=== PATIENT | male | born 1940 | race Caucasian/White ===

== ENCOUNTER 2020-03-05 12:04 | Inpatient (IN) | payer MEDICARE, OTHER ==
[~2020-03-05] VITALS: Ht 188 cm; Wt 65.0 kg
[2020-03-05] MEDS ORDERED: PRILOSEC 20MG20 MG PO (12:16)
[2020-03-05] MEDS ORDERED: FLONASEALLERGY NS (12:17)
[2020-03-05] MEDS ORDERED: FLOMAX 0.40.4 MG/CAP PO (12:17)
[2020-03-05 12:36] LABS: BASO % 0.2 % (0.0-2.0); EOS % 0.1 % (0-4.0); GRAN # 7.8 (1.4-6.5); GRAN % 86.4 % (42.2-75.2); HEMATOCRIT 41.6 % (42.0-52.0); HEMOGLOBIN 14.6 g/dl (13.5-18.0); LYMPH # 0.6 (1.2-3.4); LYMPH % 6.6 % (20.0-51.0); MEAN CELL VOLUME 89 fl (80.0-100.0); MEAN CORPUSCULAR HEMOGLOBIN 31 pg (27.0-31.0); MEAN CORPUSCULAR HGB CONC 35 g/dl (33.0-37.0); MEAN PLATELET VOLUME 10.6 fl (7.4-10.4); MONO # 0.6 (0.1-0.6); MONO % 6.3 % (1.7-9.3); PLATELET COUNT 159 K/mm3 (130-400); RED BLOOD COUNT 4.66 M/mm3 (4.20-5.60); REDCELL DISTRIBUTION WIDTH-CV 13.2 % (11.5-14.5)
[2020-03-05 12:43] LABS: ALBUMIN 3.9 gm/dL (3.5-5.0); BILIRUBIN,TOTAL 0.9 mg/dL (0.0-1.0); CALCIUM 8.6 mg/dL (8.4-10.2); CREATININE, serum 0.65 (0.66-1.25); POTASSIUM 4.9 mmol/L (3.4-5.0); TOTAL PROTEIN 6.3 gm/dL (6.4-8.2)
[2020-03-05 12:54] LABS: TROPONIN-I 0.025 ng/mL (0.000-0.035)
[2020-03-05 13:25] LABS: INR 1.1 (0.8-3.0); PROTHROMBIN TIME 12.7 SECONDS (9.7-12.8)
[2020-03-05 15:19] VITALS: BP 148/96; PULSE 90
[2020-03-05 17:03] VITALS: BP 153/98; PULSE 91; TEMP 97.5
[2020-03-05 18:59] VITALS: BP 128/87; PULSE 97; TEMP 98.3
[2020-03-05 23:28] VITALS: BP 135/87; PULSE 79; TEMP 98.2
--- NOTE | 2020-03-06 02:25 | NUR ---
Pt assessment completed, charted, alert, oriented, roomair. Meds provided as per MAR, tolertaed well. No N/V/D/ tingling, numbness, pain, SOA, as per pt. Helped to settled on his bed, call light on reach. No further needs at this time.
[2020-03-06 03:46] VITALS: BP 121/70; PULSE 76; TEMP 98.2
--- NOTE | 2020-03-06 06:35 | NUR ---
Pt had an uneventful night, slept through out the night. Morning meds provided as per SEP. No further needs at this time.
[2020-03-06 06:58] LABS: BASO % 0.4 % (0.0-2.0); EOS # 0.1 (0.0-0.7); EOS % 1.2 % (0-4.0); GRAN # 4.8 (1.4-6.5); GRAN % 71.9 % (42.2-75.2); HEMOGLOBIN 15.2 g/dl (13.5-18.0); LYMPH % 14.6 % (20.0-51.0); MEAN CELL VOLUME 91 fl (80.0-100.0); MEAN CORPUSCULAR HEMOGLOBIN 31 pg (27.0-31.0); MEAN CORPUSCULAR HGB CONC 35 g/dl (33.0-37.0); MEAN PLATELET VOLUME 10.6 fl (7.4-10.4); MONO # 0.8 (0.1-0.6); MONO % 11.3 % (1.7-9.3); PLATELET COUNT 161 K/mm3 (130-400); RED BLOOD COUNT 4.84 M/mm3 (4.20-5.60); REDCELL DISTRIBUTION WIDTH-CV 13.3 % (11.5-14.5)
[2020-03-06 07:06] LABS: ALBUMIN 3.7 gm/dL (3.5-5.0); CALCIUM 8.8 mg/dL (8.4-10.2); CREATININE, serum 0.72 (0.66-1.25); PHOSPHOROUS 3.9 mg/dL (2.5-4.5); POTASSIUM 3.9 mmol/L (3.4-5.0); TOTAL PROTEIN 6.3 gm/dL (6.4-8.2)
[2020-03-06 07:58] VITALS: BP 135/77; PULSE 77; TEMP 97.9
--- NOTE | 2020-03-06 08:00 | NUR ---
Patient in bed resting. Alert and oriented x 3. Assessment complete. INT to right forarm without complications. Denies pain or further needs at this time.
--- NOTE | 2020-03-06 11:13 | NUR ---
Educated patient on sputum sample and urine sample.
[2020-03-06 12:05] VITALS: BP 122/78; PULSE 85; TEMP 97.5
--- NOTE | 2020-03-06 12:56 | NUR ---
Coverage Specialist stopped by but nothing needed at this time. Visited briefly with patient.
--- NOTE | 2020-03-06 13:33 | NUR ---
Plan: To return home with Brenda as care support Home Phone. Assessment: SW met with patient about care needs. Patient reports that they reside in [facility]. Patient reports that Dr. Navarro is his PCP. Patient reports that he uses [facility] or [facility] for short term/immediate medications. Patient reports that he has a cane and uses it daily. Patient reports that he is interested in home healthcare and the meals on wheels programs because his forgets and they are both needing additional cooking help or food services. Patient report that he has for life but does not want to use [facility] doctors. Action: SW educated patient on services available to them. [facility] with [facility] and needs a referral to meals on wheels program per request. Will continue to follow for care.
[2020-03-06 16:21] VITALS: BP 105/72; PULSE 85; TEMP 97.8
--- NOTE | 2020-03-06 17:48 | NUR ---
Patient has done well throughout the day. Denies pain throughout the day. Has been up independently in room, steady gait. Denies further needs at this time. Will report off to business intelligence manager.
[2020-03-06 20:09] VITALS: BP 129/87; PULSE 80; TEMP 97.5
--- NOTE | 2020-03-06 22:15 | NUR ---
Pt assessment completed, charted, alert, oriented, roomair. Meds provided as per MAR, tolerated well. No N/V/D, tingling, numbness, pain, SOA as per pt. Helped pt to settled on his bed, call light on reach, no further needs at this time.
[2020-03-06 23:36] VITALS: BP 122/77; PULSE 73; TEMP 97.7
[2020-03-07 03:43] VITALS: BP 134/77; PULSE 81; TEMP 97.4
--- NOTE | 2020-03-07 06:01 | NUR ---
Pt had an uneventful night, slept through out the night. Morning meds provided as per SEP. No further needs at this time.
[2020-03-07 06:13] LABS: BASO % 0.5 % (0.0-2.0); EOS # 0.2 (0.0-0.7); GRAN # 5.6 (1.4-6.5); GRAN % 71.9 % (42.2-75.2); HEMATOCRIT 44.3 % (42.0-52.0); HEMOGLOBIN 15.1 g/dl (13.5-18.0); LYMPH % 13.2 % (20.0-51.0); MEAN CELL VOLUME 91 fl (80.0-100.0); MEAN CORPUSCULAR HEMOGLOBIN 31 pg (27.0-31.0); MEAN CORPUSCULAR HGB CONC 34 g/dl (33.0-37.0); MEAN PLATELET VOLUME 10.6 fl (7.4-10.4); MONO # 0.8 (0.1-0.6); MONO % 10.9 % (1.7-9.3); PLATELET COUNT 148 K/mm3 (130-400); RED BLOOD COUNT 4.86 M/mm3 (4.20-5.60); REDCELL DISTRIBUTION WIDTH-CV 13.7 % (11.5-14.5)
[2020-03-07 06:29] LABS: ALBUMIN 3.5 gm/dL (3.5-5.0); BILIRUBIN,TOTAL 0.8 mg/dL (0.0-1.0); CALCIUM 8.5 mg/dL (8.4-10.2); CREATININE, serum 0.73 (0.66-1.25); PHOSPHOROUS 3.9 mg/dL (2.5-4.5); TOTAL PROTEIN 5.9 gm/dL (6.4-8.2)
[2020-03-07 07:35] VITALS: BP 143/89; PULSE 90; TEMP 97.6
[2020-03-07 12:28] VITALS: BP 114/76; PULSE 76; TEMP 97.7
[2020-03-07 17:16] VITALS: BP 116/80; PULSE 88; TEMP 98
[2020-03-07 19:34] VITALS: BP 122/82; PULSE 86; TEMP 97.6
--- NOTE | 2020-03-07 19:45 | NUR ---
Patient assessed at this time. Alert and oriented x 4, and able to make needs known. Denies having pain and discomfort at this time. Peripheral INT to right forearm flushed. Site is without redness, warmth, swelling, and pain. Denies having SOB and dyspnea. Reports respiratory status is much better. Reports occastional dry cough. LS CTA. Respirations even and unlabored. HRR. Capillary refill less than 3 seconds. Non-tenting skin turgor. BSAx4. Abdomen soft and non-tender. No edema. Voices no questions, needs, or concerns at this time. Resting in bed with call light within reach.
[2020-03-07 23:28] VITALS: BP 115/74; PULSE 81; TEMP 97.5
[2020-03-08] VITALS (240 sets, daily range): BP systolic 63–137; BP diastolic 42–90; PULSE 69–108; TEMP 97.4–98.5; O2SAT 87–100
--- NOTE | 2020-03-08 05:21 | NUR ---
Patient has been resting in bed with eyes closed. Has denied having pain and discomfort this shift. Voices no questions, needs, or concerns this shift. Patient signed consent for heart catheterization today. Has been NPO since midnight for procedure.
[2020-03-08 07:21] LABS: BASO % 0.5 % (0.0-2.0); EOS # 0.3 (0.0-0.7); EOS % 3.8 % (0-4.0); GRAN # 6.1 (1.4-6.5); GRAN % 72.5 % (42.2-75.2); HEMATOCRIT 48.9 % (42.0-52.0); HEMOGLOBIN 16.7 g/dl (13.5-18.0); LYMPH # 1.2 (1.2-3.4); LYMPH % 14.1 % (20.0-51.0); MEAN CELL VOLUME 92 fl (80.0-100.0); MEAN CORPUSCULAR HEMOGLOBIN 31 pg (27.0-31.0); MEAN CORPUSCULAR HGB CONC 34 g/dl (33.0-37.0); MEAN PLATELET VOLUME 10.4 fl (7.4-10.4); MONO # 0.7 (0.1-0.6); MONO % 8.6 % (1.7-9.3); PLATELET COUNT 175 K/mm3 (130-400); RED BLOOD COUNT 5.32 M/mm3 (4.20-5.60); REDCELL DISTRIBUTION WIDTH-CV 13.9 % (11.5-14.5)
[2020-03-08 07:27] LABS: CREATININE, serum 0.87 (0.66-1.25); POTASSIUM 3.9 mmol/L (3.4-5.0)
[2020-03-08 07:41] LABS: PROTHROMBIN TIME 11.6 SECONDS (9.7-12.8)
[2020-03-08 07:44] LABS: PARTIAL THROMBOPLASTIN TIME 32.7 SECONDS (26.0-37.0)
--- NOTE | 2020-03-08 07:57 | NUR ---
Assessment complete. Patient sitting by window, awake and alert at this time. He is aware of his POC at this time. Denies pain or discomfort. Patient was under the understanding that because his procedure was now going to be at 1300 that he could eat and drink, I reminded him that this is unfortunately not the case and that he should remain NPO, he stated he might drink some water, I again reminded him that he could have some with his medications but that was it. He expressed understanding. IV site is CD&I, flushed very well. No other needs were expressed at this time. Call light is in reach.
--- NOTE | 2020-03-08 13:07 | NUR ---
Pt down for heart cath at this time.
--- NOTE | 2020-03-08 13:33 | NUR ---
SEE MERGE DOCUMENTATION FOR MEDICATION ADMINISTRATION AND INTRA/POST PROCEDURE SEDATION ASSESSMENTS.
--- NOTE | 2020-03-08 14:00 | NUR ---
Patient transferred to ICU post heart cath.
--- NOTE | 2020-03-08 14:19 | NUR ---
Train Caller spoke with Kris at [facility] who advised they can accept referral. SW will continue to follow.
--- NOTE | 2020-03-08 14:30 | NUR ---
Attempted to meet with pt for CHF education. Per Silver Wrapper, pt our of room for heart cath.
--- NOTE | 2020-03-08 17:32 | NUR ---
MD Thad notified of hypotension and pt stating feeling drowsy, groin site and radial site stable. IV Fluid bolus ordered
--- NOTE | 2020-03-08 17:52 | NUR ---
MD Thad contacted regarding sustained hypotension - pt supine HOB 0degrees last BP 82/55(64) - MD Thad OK with that range of blood pressure But now asymptomatic wishing to sit up and eat meal tray that was just delivered - education provided
--- NOTE | 2020-03-08 18:10 | NUR ---
MD Thad notified pt's BP systolic < 70 pt is now nauseaous Orders recieved for dopamine initiation via peripheral line until surgery is able to place central venous access FADUMO Simon notified - on unit at 1820
--- NOTE | 2020-03-08 19:20 | NUR ---
Bedside report provided to RAYMOND Norris - Central line inserted and placement confirmed by MD Michael - Dopamine gtt transfered to Blue port on new Right Subclavian Central Line. FADUMO Simon updated - per Thad Simon MD OK with SBP in the 80's.
[2020-03-09] VITALS (156 sets, daily range): BP systolic 65–134; BP diastolic 46–97; PULSE 76–105; TEMP 96.3–98.7; O2SAT 77–100
--- NOTE | 2020-03-09 00:58 | NUR ---
2030-- 5 CC'S OF AIR REMOVED FROM TR BAND. NO REDNESS OR HEMATOMA NOTED. CENTRAL LINE DRESSING ALSO CHANGED AT THIS TIME DUE TO BLEEDING AT THE SITE. PRESSURE HELD AT SITE FOR 10 MINUTES. 2330- 6 CC'S OF AIR REMOVED FROM TR BAND. NO REDNESS OR HEMATOMA NOTED. CENTRAL LINE CHANGED ONCE AGAIN DUE TO BLEEDING OCCURING AGAIN AT THIS TIME. PRESSURE HELD FOR 15 MINUTES AND PRESSURE DRESSING IN PLACE. SOME BLEEDING ALSO NOTED AT GROIN SITE. PRESSURE HELD FOR 5 MINUTES THERE. NO COMPLAINTS AT THIS TIME FROM THE PATIENT. 0015- TR BAND AND ARM BOARD TAKEN OFF. NO BLEEDING OR HEMATOMA NOTED. REMINDED PATIENT TO NOT USE RIGHT WRIST TO PUSH HIMSELF UP IN BED OR EXERT/APPLY PRESSURE AT SITE. PT VERBALIZED UNDERSTANDING. WILL CONTINUE TO WADE.
[2020-03-09 05:48] LABS: HEMATOCRIT 39.2 % (42.0-52.0); MEAN CELL VOLUME 90 fl (80.0-100.0); MEAN CORPUSCULAR HEMOGLOBIN 31 pg (27.0-31.0); MEAN CORPUSCULAR HGB CONC 35 g/dl (33.0-37.0); MEAN PLATELET VOLUME 10.1 fl (7.4-10.4); PLATELET COUNT 148 K/mm3 (130-400); RED BLOOD COUNT 4.34 M/mm3 (4.20-5.60); REDCELL DISTRIBUTION WIDTH-CV 13.3 % (11.5-14.5)
[2020-03-09 05:50] LABS: HEMOGLOBIN 13.6 g/dl (13.5-18.0)
[2020-03-09 05:56] LABS: CALCIUM 8.3 mg/dL (8.4-10.2); CREATININE, serum 0.8 (0.66-1.25); POTASSIUM 4.4 mmol/L (3.4-5.0)
[2020-03-09 06:03] LABS: BAND 4 % (0-10); LYMPHOCYTE 1 % (20.0-51.0); NEUTROPHILS 86 % (42.0-75.2); PLATELET ESTIMATE NORMAL (NORMAL)
--- NOTE | 2020-03-09 08:00 | NUR ---
Shift assessment complete at this time. Plan of care reviewed at bedside with patient. Additional time taken to address any other needs or concerns. Vitals stable at this time. Pt denies pain or any other discomforts. Bed in low position, call light within reach, will continue to monitor.
--- NOTE | 2020-03-09 12:00 | NUR ---
Pt resting comfortably in bed. Reports tolerable chest tightness that is still gradually improving. Vitals stable at this time while off of Dopamine gtt. Bed in low position, call light within reach, will continue to monitor.
--- NOTE | 2020-03-09 12:08 | NUR ---
I spoke with pt this am and then called Brenda @ [phone] and then daughter Navya @ [phone]. Pt indicates that he may need to go to a detention after discharge and states he would want [facility] he thinks. Also reports may need to stop driving. Describes his as "strong willed" but caring. Not sure she would be interested in detention care. I also spoke with daughter Navya, who reports that she is her father's DPOA-HC and will see that that paperwork is sent here. She describes her father as " very realistic and logical" She will be available for further help for her father. We will continue to follow as pt recovers from his events to see what [facility] services he may need.
--- NOTE | 2020-03-09 13:39 | NUR ---
SW attended clinical rounds. A palliative care consult had been ordered. Palliative Care Nurse, Nichelle, informed MISAEL that the patient would like to pursue recovery as he can and would be interested in custodial placement upon discharge. Nichelle reports that she also spoke to the patient's daughter, Navya (ph#[phone]), and Navya reports that she is the patient's DPOA-HC and will be faxing or emailing the documents here. SW then met with the patient to review discharge plan. The patient reports that he is really weak and feels like he is going to need more help before returning home with his . SW discussed SNF. The patient is interested in SNF and chose 1) [facility] 2) [facility]. SW contacted and faxed a referral to both facilities. SW contacted and updated the patient's daughter, Navya. Navya lives in [place]. Navya reports that the patient's is a great caregiver and would like for the patient to return home. Navya states that they will do whatever the patient needs though and was agreeable with SW sending the referrals. SW awaiting screens and will continue to follow.
--- NOTE | 2020-03-09 15:38 | NUR ---
Scott, at [facility], reports that they are not able to accept the patient at this time. SW to inform the patient and will continue to follow.
--- NOTE | 2020-03-09 15:59 | NUR ---
Jarred, at [facility], reports that they would be able to accept the patient for a skilled stay. They would just need a negative COVID test. SW notified the patient's RN about needing a COVID test. SW met with the patient and updated him on referrals. The patient reports that he is agreeable with going to [facility]. SW to continue to follow.
--- NOTE | 2020-03-09 16:00 | NUR ---
Pt resting comfortably in bed. Denies pain or any other discomfort. Vitals stable at this time. Bed in low position, call light within reach, will continue to monitor. R radial et R femoral cath sites clean, dry, et intact with no new drainage or hematoma present on assessment.
--- NOTE | 2020-03-09 21:45 | NUR ---
2099 - PT assessed, discussed POC and plan for rehab. PT states he is looking forward to it. 2101- Report given to RAYMOND Dean. 2134 - PT transported to medical floor via wheelchair to room 317.
--- NOTE | 2020-03-09 21:45 | NUR ---
Patient arrived to medical floor. Denies having pain and discomfor. Alert and oriented. High fall risk precautions in place. Triple lumen central line to right subclavian. Peripheral INT to right forearm. Denies having SOB and dyspnea. RT put patient on oxygen at 2 L/min via NC. LS CTA. Respirations even and unlabored. HRR. Telemetry in place. Capillary refill less than 3 seconds. Non-tenting skin turgor. BSAx4. Abdomen soft and non-tender. No edema. Voices no questions, needs, or concerns at this time. Resting in bed with call light within reach.
[2020-03-10 03:21] VITALS: BP 106/71; PULSE 100; TEMP 97.7
--- NOTE | 2020-03-10 06:14 | NUR ---
Patient has been resting in bed with call light within reach. Voiced that he slept well this shift. Dressing to right groin has no increased bleeding noted, as well as dressing to TLC to right subclavian. Voices no questions, needs, or concerns at this time. Resting in bed with call light within reach. High fall risk precautions in place.
--- NOTE | 2020-03-10 06:50 | NUR ---
Report with RAYMOND Dean. Pt resting in bed, denies needs at this time. Dressings over right TLC and right groin with dried blood, soft to palpation. Call light in reach. Bed alarm on.
[2020-03-10 07:05] LABS: BASO % 0.1 % (0.0-2.0); GRAN # 8.7 (1.4-6.5); GRAN % 87.1 % (42.2-75.2); HEMATOCRIT 35.2 % (42.0-52.0); HEMOGLOBIN 12.4 g/dl (13.5-18.0); LYMPH # 0.3 (1.2-3.4); LYMPH % 3.4 % (20.0-51.0); MEAN CELL VOLUME 91 fl (80.0-100.0); MEAN CORPUSCULAR HEMOGLOBIN 32 pg (27.0-31.0); MEAN CORPUSCULAR HGB CONC 35 g/dl (33.0-37.0); MEAN PLATELET VOLUME 10.8 fl (7.4-10.4); MONO # 0.9 (0.1-0.6); MONO % 9.2 % (1.7-9.3); PLATELET COUNT 127 K/mm3 (130-400); RED BLOOD COUNT 3.87 M/mm3 (4.20-5.60); REDCELL DISTRIBUTION WIDTH-CV 13.8 % (11.5-14.5)
[2020-03-10 07:26] LABS: CALCIUM 8.4 mg/dL (8.4-10.2); CREATININE, serum 0.94 (0.66-1.25); MAGNESIUM 2.1 mg/dL (1.6-2.3); POTASSIUM 3.8 mmol/L (3.4-5.0)
[2020-03-10 08:15] VITALS: BP 111/55; PULSE 101; TEMP 97.6
--- NOTE | 2020-03-10 08:15 | NUR ---
Assessment complete. Pt ambulating around room with steady gait, performs ADL's with this nurse at standby. Pt A&O x 3. Dressing over right subclavian central line catheter with dried bloody drainage, no s/s of infiltration. Dressing over right groin with dried bloody drainage, soft to palpation. Saline lock IV to right forearm without s/s of complications. Pt denies pain at this time. No further needs reported. Call light in reach. Bed alarm in use.
[2020-03-10 08:31] VITALS: BP 101/75; PULSE 104; TEMP 98.3
--- NOTE | 2020-03-10 10:56 | NUR ---
Met with pt and his ,Brenda, at bedside. Pt himself is feeling a lot better by his report and has been out of bed moving around. Later seen walking in chowdhury with PT and doing very well. He and Brenda tell me that they have been talking and are feeling better about taking a period of time for rehab at the shelter if it is indicated. Support provided. Pt did become tearful when he spoke of not remembering all of the events from the last couple days. Support provided and reminded that he had recieved some medications during his procedure and following that may have effected his memory at the time.
[2020-03-10 12:49] VITALS: BP 113/87; PULSE 70; TEMP 97.6
--- NOTE | 2020-03-10 14:34 | NUR ---
Spoke with daughter Navya by phone and advised pt has been up with PT and with standby for personal care activities without issue. Anticipate discharge to [facility] probably tomorrow at this point.
[2020-03-10 16:34] VITALS: BP 93/57; PULSE 85; TEMP 97.5
--- NOTE | 2020-03-10 16:59 | NUR ---
Upper Leather Sorter attended clinical rounds with the team. Patient's COVID test is still pending. SW met with patient after rounds and he is agreeable to discharge to [facility]. MISAEL contacted patient's daughter, Navya to provide update. Navya is working on providing DPOA- paperwork. MISALE contacted Jamila at [facility] who confirmed they have a bed for patient. MISAEL will continue to follow.
--- NOTE | 2020-03-10 17:35 | NUR ---
Pt sitting up in chair, denies pain or c/o at this time. POC for tonight and tomorrow reviewed with pt. Pt verbalizes understanding but provider did not discuss possible procedure (JOSE/CV) with pt, will await informed consent. No further needs reported. Call light in reach. Chair alarm in place.
[2020-03-10 19:36] VITALS: BP 95/67; PULSE 81; TEMP 97.1
[2020-03-11] VITALS (14 sets, daily range): BP systolic 83–115; BP diastolic 52–80; PULSE 47–104; TEMP 96.7–98.5
--- NOTE | 2020-03-11 02:20 | NUR ---
Pt assessment completed, charted, alert, oriented, roomair. Meds provided as per SEP, tolerated well. Settled on bed, call light on reach. No further needsa at this time.
--- NOTE | 2020-03-11 05:25 | NUR ---
Pt had an uneventful night, slept on and off through out the night. No further needs at this time.
[2020-03-11 07:16] LABS: BASO % 0.1 % (0.0-2.0); EOS % 0.1 % (0-4.0); GRAN # 8.3 (1.4-6.5); GRAN % 82.3 % (42.2-75.2); LYMPH # 0.7 (1.2-3.4); LYMPH % 6.7 % (20.0-51.0); MEAN CELL VOLUME 91 fl (80.0-100.0); MEAN CORPUSCULAR HEMOGLOBIN 31 pg (27.0-31.0); MEAN CORPUSCULAR HGB CONC 34 g/dl (33.0-37.0); MEAN PLATELET VOLUME 10.6 fl (7.4-10.4); MONO % 10.3 % (1.7-9.3); PLATELET COUNT 123 K/mm3 (130-400); RED BLOOD COUNT 3.83 M/mm3 (4.20-5.60); REDCELL DISTRIBUTION WIDTH-CV 13.8 % (11.5-14.5)
[2020-03-11 07:18] LABS: INR 1.1 (0.8-3.0); PROTHROMBIN TIME 12.3 SECONDS (9.7-12.8)
[2020-03-11 07:37] LABS: CALCIUM 8.3 mg/dL (8.4-10.2); CREATININE, serum 0.93 (0.66-1.25); MAGNESIUM 2.4 mg/dL (1.6-2.3); POTASSIUM 3.6 mmol/L (3.4-5.0)
--- NOTE | 2020-03-11 08:32 | NUR ---
Pt assessment complete. Pt sitting in bed upon entry, reports being up in the room ambulating. Does feel SOB on exertion. Occasional wet cough present. Pt denies pain, no chest palitations. Triple lumen to R chest bloody and dried blood to R femoral dressing. Some bruising to site of R femoral. POC discussed with patient who verbalizes understanding and is hopeful to go to [facility] today. No further needs. Pt NPO. Will continue to monitor.
--- NOTE | 2020-03-11 10:40 | NUR ---
Initial visit; Patient talkative and shared information about his life, his daughter who calls every morning with a Bible verse and offers him comfort and strength. Patient emotional and stated how much he appreciated Software Development Analyst providing Spiritual Care for patients. He thanked Software Development Analyst for leaving her card with him as well.
--- NOTE | 2020-03-11 11:00 | NUR ---
Pt left for CV at this time.
--- NOTE | 2020-03-11 15:41 | NUR ---
Hoseman faxed updates to [facility] and will continue to follow.
--- NOTE | 2020-03-11 19:09 | NUR ---
Pt did not convert to NSR for extended period of time. Currently Afib, BP improved from procedure. Denies pain, SOB or dizziness. Afib and POC discussed with patient who verbalizes understanding. Dressing to triple lumen changed, and bloody dressing to R femoral site taken off. Bruising and small bump to the site. No active bleeding. No needs at this time. Call light within reach. Report given to RAYMOND Gutierres.
--- NOTE | 2020-03-11 20:00 | NUR ---
Assessment complete at this time. Patient ambulates with assistance to the restoom and has a shaky gait. He has a small formed BM and voids yellow/clear urine. His heart rate increases significantly with exertion but he does not become SOA. Will continue to monitor.
[2020-03-12 04:01] VITALS: BP 100/61; PULSE 95; TEMP 98.2
--- NOTE | 2020-03-12 04:43 | NUR ---
Patient has a restful, uneventful night. No new concerns.
[2020-03-12 07:07] LABS: BASO % 0.1 % (0.0-2.0); EOS # 0.1 (0.0-0.7); EOS % 0.8 % (0-4.0); GRAN % 77.2 % (42.2-75.2); HEMOGLOBIN 11.5 g/dl (13.5-18.0); LYMPH # 0.8 (1.2-3.4); LYMPH % 10.8 % (20.0-51.0); MEAN CELL VOLUME 93 fl (80.0-100.0); MEAN CORPUSCULAR HEMOGLOBIN 31 pg (27.0-31.0); MEAN CORPUSCULAR HGB CONC 34 g/dl (33.0-37.0); MEAN PLATELET VOLUME 11.2 fl (7.4-10.4); MONO # 0.8 (0.1-0.6); MONO % 10.6 % (1.7-9.3); PLATELET COUNT 118 K/mm3 (130-400); RED BLOOD COUNT 3.66 M/mm3 (4.20-5.60); REDCELL DISTRIBUTION WIDTH-CV 13.9 % (11.5-14.5)
[2020-03-12 07:20] LABS: CALCIUM 8.4 mg/dL (8.4-10.2); CREATININE, serum 0.93 (0.66-1.25); POTASSIUM 3.4 mmol/L (3.4-5.0)
[2020-03-12 07:28] VITALS: BP 139/84; PULSE 80; TEMP 98.2
--- NOTE | 2020-03-12 09:00 | NUR ---
PATIENT IS AWAKE AND ALERT IN ROOM. REQUESTED SHAVER TO BE AT BEDSIDE, INDEPENDENT WITH THAT ADL. HAS BEEN REQUESTING ASSISTANCE WHEN OUT OF BED AND HAS REQUIRED STANDBY ASSIST WITH AMBULATION. DENIES PAIN. CALL LIGHT AND PERSONAL ITEMS ARE WITHIN REACH.
[2020-03-12 12:01] VITALS: BP 109/69; PULSE 92; TEMP 97.4
--- NOTE | 2020-03-12 15:20 | NUR ---
Well Surveying Engineer collaborated with Hospitalist who advised tentative plan is for discharge Sunday. SW contacted patient's daughter, Navya to provide update. SW contacted [facility] and faxed updates. SW will continue to follow.
[2020-03-12 15:53] VITALS: BP 112/78; PULSE 92; TEMP 97.7
--- NOTE | 2020-03-12 18:35 | NUR ---
PATIENT HAS NO NEEDS AT THIS TIME.
[2020-03-12 19:57] VITALS: BP 124/78; PULSE 69; TEMP 97.9
--- NOTE | 2020-03-12 20:56 | NUR ---
Assessment complete at this time. Patient has no complaints of pain and no edema is present. Patient ambulates from chair to bed with standby assistance; His gait is slightly shaky but steady. Heart rate is irregular with normal heart sounds. He has tremors in his extremities, which is normal for him he says. A bruise is present on his right wrist and right femoral area, where a cardiac cath procedure was performed a few days ago. Will continue to monitor.
[2020-03-13] VITALS: BP 117/79; PULSE 90; TEMP 97.5
[2020-03-13 04:00] VITALS: BP 117/89; PULSE 80; TEMP 97.4
[2020-03-13 07:22] LABS: BASO % 0.3 % (0.0-2.0); EOS # 0.2 (0.0-0.7); EOS % 2.4 % (0-4.0); GRAN # 4.4 (1.4-6.5); GRAN % 70.9 % (42.2-75.2); HEMOGLOBIN 11.6 g/dl (13.5-18.0); LYMPH # 0.8 (1.2-3.4); LYMPH % 13.5 % (20.0-51.0); MEAN CELL VOLUME 93 fl (80.0-100.0); MEAN CORPUSCULAR HEMOGLOBIN 31 pg (27.0-31.0); MEAN CORPUSCULAR HGB CONC 33 g/dl (33.0-37.0); MONO # 0.7 (0.1-0.6); MONO % 11.9 % (1.7-9.3); PLATELET COUNT 146 K/mm3 (130-400); RED BLOOD COUNT 3.77 M/mm3 (4.20-5.60); REDCELL DISTRIBUTION WIDTH-CV 13.7 % (11.5-14.5)
[2020-03-13 07:25] LABS: HEMATOCRIT 35.1 % (42.0-52.0)
[2020-03-13 07:37] LABS: CALCIUM 8.5 mg/dL (8.4-10.2); CREATININE, serum 0.91 (0.66-1.25); POTASSIUM 3.7 mmol/L (3.4-5.0)
[2020-03-13 07:59] VITALS: BP 139/69; PULSE 93; TEMP 97.3
--- NOTE | 2020-03-13 08:39 | NUR ---
PATIENT ASSESSMENT COMPLETED UP TO THE BENCH IN ROOM EATTING BREAKFAST. HE IS ALERT AND ORIENTED. FEELING STRONGER TODAY. STILL HAS TREMORS IN HANDS WHEN DOING ACTIVITIES RIGHT WORSE THAN LEFT. DENIES OTHER NEEDS
--- NOTE | 2020-03-13 08:59 | NUR ---
TELEMETRY CALLED TO NOTIFY ME OF ELEVATED HEART RATE. PATIENT REPORTS THAT HE FEELS FINE AND WAS GETTING BACK INTO THE BED AFTER EATTING. NO COMPLAINTS AT THIS TIME.
--- NOTE | 2020-03-13 09:00 | NUR ---
WEIGHT WAS COMPLETED IN BED WITH ONE SHEET AND BLANKET ONE PILLOW AND SCD MACHINE WAS REMOVED.
--- NOTE | 2020-03-13 10:16 | NUR ---
patient is now weighed with only one pillow, one sheet and brown blanket and scd's on bed. Weight is 65.0 kg
[2020-03-13] MEDS ORDERED: EFFIENT10 MG PO (11:00)
[2020-03-13] MEDS ORDERED: ELIQUIS 5MG PO (11:00)
[2020-03-13] MEDS ORDERED: IPRATROPIUM BROM3 M1 IH (11:01)
[2020-03-13] MEDS ORDERED: TOPROL XL 25MG25 MG PO (11:02)
[2020-03-13] MEDS ORDERED: METAMUCIL3.4 GM/DOS PO (11:02)
[2020-03-13] MEDS ORDERED: TYLENOL 325MG325 MG PO (11:02)
[2020-03-13] MEDS ORDERED: NITROSTAT0.4 MG/TAB SL (11:02)
[2020-03-13] MEDS ORDERED: LASIX 20MG TABL20 MG PO (11:02)
[2020-03-13] MEDS ORDERED: LIPITOR 40MG TA40 MG PO (11:02)
[2020-03-13] MEDS ORDERED: CORDARONE200 MG/TAB PO (11:03)
[2020-03-13 11:27] VITALS: BP 139/69; PULSE 93; TEMP 97.3
[2020-03-13 11:49] VITALS: BP 109/70; PULSE 67; TEMP 97.4
--- NOTE | 2020-03-13 12:32 | NUR ---
REPORT CALLED TO COURT C AT [facility]. NO FURTHER QUESTIONS AT THIS TIME. MY NUMBER WAS GIVEN IF ANY ARRISE.
--- NOTE | 2020-03-13 12:50 | NUR ---
MAXWELL ANDRADE CHARGE NURSE PULLED THE TRIPLE LUMEN FROM THE RIGHT CHEST PER DR. SUÁREZ.
--- NOTE | 2020-03-13 14:00 | NUR ---
PATIENT DISCHARGED TO PRISON PER ORDERS. BELONGINGS SENT ALONG. DENIES QUESTIONS
--- NOTE | 2020-03-13 14:01 | NUR ---
PATIENT DISCHARGE WITH BELONGINGS AND PAPERWORK WITH ASSISTED STAFF.
== END 2020-03-13 14:00 | DRG 246 ==
LOC: COL.ER 12:04 → MEDICAL 13:29 → ICU 13:29 → MEDICAL 19:00 → ICU 03-08 15:27 → MEDICAL 03-09 21:32
PROVIDERS: Emergency Medicine; Internal Medicine; Student in an Organized Health Care Education/Training Program; ADMIT Family Medicine
PROC: 027034Z Dilation of Coronary Artery, One Artery with Drug-eluting Intraluminal Device, Percutaneous Approach (ICD-10-PCS; principal; 2020-03-08)
PROC: 02703DZ Dilation of Coronary Artery, One Artery with Intraluminal Device, Percutaneous Approach (ICD-10-PCS; 2020-03-08)
PROC: 4A023N6 Measurement of Cardiac Sampling and Pressure, Right Heart, Percutaneous Approach (ICD-10-PCS; 2020-03-08)
PROC: B2111ZZ Fluoroscopy of Multiple Coronary Arteries using Low Osmolar Contrast (ICD-10-PCS; 2020-03-08)
PROC: 5A2204Z Restoration of Cardiac Rhythm, Single (ICD-10-PCS; 2020-03-12)
DX: I50.21 Acute systolic (congestive) heart failure (principal); J18.9 Pneumonia, unspecified organism; E87.1 Hypo-osmolality and hyponatremia; E44.0 Moderate protein-calorie malnutrition; Z68.1 Body mass index [BMI] 19.9 or less, adult; I42.9 Cardiomyopathy, unspecified; I27.20 Pulmonary hypertension, unspecified; I48.91 Unspecified atrial fibrillation; I25.10 Atherosclerotic heart disease of native coronary artery without angina pectoris; Z66 Do not resuscitate; N40.0 Benign prostatic hyperplasia without lower urinary tract symptoms; K21.9 Gastro-esophageal reflux disease without esophagitis; K59.00 Constipation, unspecified; I95.9 Hypotension, unspecified; F17.210 Nicotine dependence, cigarettes, uncomplicated
CPT/HCPCS: 99223-AI; 99232-AI; 99233-AI; 99239; C1725; C1769; C1874; C1887; C1894; C9600; J0282; J0456; J0583; J0696; J1265; J1644; J1650; J1940; J2250; J2370; J2405; J2704; J3010; J7030; J7050; J7060

== ENCOUNTER 2020-05-06 08:20 | Day surgery (SDC) | payer MEDICARE, OTHER ==
[~2020-05-06] VITALS: Ht 188 cm; Wt 75.0 kg
[~2020-05-06 08:20] MED LIST: CORDARONE200 MG/TAB PO; EFFIENT10 MG PO; ELIQUIS 5MG PO; FLOMAX 0.40.4 MG/CAP PO; FLONASEALLERGY NS; IPRATROPIUM BROM3 M1 IH; LASIX 20MG TABL20 MG PO; LIPITOR 40MG TA40 MG PO; METAMUCIL3.4 GM/DOS PO; NITROSTAT0.4 MG/TAB SL; PRILOSEC 20MG20 MG PO; TOPROL XL 25MG25 MG PO; TYLENOL 325MG325 MG PO
[2020-05-06] MEDS ORDERED: IPRATROPIUM BROM3 M1 IH (09:14)
[2020-05-06] MEDS ORDERED: ELIQUIS 5MG PO (09:15)
[2020-05-06] MEDS ORDERED: CORDARONE200 MG/TAB PO (09:16)
[2020-05-06] MEDS ORDERED: LIPITOR 40MG TA40 MG PO (09:16)
[2020-05-06] MEDS ORDERED: TOPROL XL 25MG25 MG PO (09:17)
[2020-05-06] MEDS ORDERED: LASIX 20MG TABL20 MG PO (09:17)
[2020-05-06] MEDS ORDERED: EFFIENT10 MG PO (09:20)
[2020-05-06 09:21] LABS: HEMOGLOBIN 11.9 g/dl (13.5-18.0); MEAN CELL VOLUME 88 fl (80.0-100.0); MEAN CORPUSCULAR HEMOGLOBIN 30 pg (27.0-31.0); MEAN CORPUSCULAR HGB CONC 34 g/dl (33.0-37.0); MEAN PLATELET VOLUME 9.7 fl (7.4-10.4); PLATELET COUNT 166 K/mm3 (130-400); RED BLOOD COUNT 3.95 M/mm3 (4.20-5.60); REDCELL DISTRIBUTION WIDTH-CV 13.9 % (11.5-14.5)
[2020-05-06] MEDS ORDERED: METAMUCIL3.4 GM/DOS PO (09:21)
[2020-05-06 09:24] LABS: HEMATOCRIT 34.7 % (42.0-52.0)
[2020-05-06 09:27] VITALS: BP 129/87; PULSE 64; TEMP 97.6
[2020-05-06 09:27] LABS: INR 1.5 (0.8-3.0); PROTHROMBIN TIME 16.5 SECONDS (9.7-12.8)
[2020-05-06 09:30] LABS: PARTIAL THROMBOPLASTIN TIME 35.2 SECONDS (26.0-37.0)
[2020-05-06 09:48] LABS: CALCIUM 8.2 mg/dL (8.4-10.2); CREATININE, serum 0.83 (0.66-1.25); MAGNESIUM 1.9 mg/dL (1.6-2.3); POTASSIUM 3.8 mmol/L (3.4-5.0)
[2020-05-06 10:19] LABS: THYROID STIMULATING HORMONE 2.3 uIU/mL (0.465-4.680)
[2020-05-06 10:30] VITALS: BP 137/93; PULSE 66
[2020-05-06 10:45] VITALS: BP 135/91; PULSE 64
[2020-05-06 11:00] VITALS: BP 137/87; PULSE 50
[2020-05-06 11:15] VITALS: BP 128/86; PULSE 54
[2020-05-06 11:30] VITALS: BP 133/95; PULSE 69
--- NOTE | 2020-05-06 11:35 | NUR ---
Pt care was assumed at 1030, bs report was received from Bull ANDRADE. Pt has recovered well, he has remained in sinus/sinus berto during recovery. Dr. Oneil is aware that pt's rate has occasionally dipped into the 40's. Pt has been resting easily without complaint, he has been able to drink with no problem. I have reviewed dc and fu instructions with pt who denies any questions or concerns. IV is dc'd with cath intact, dressing applied. to exit via wheelchair.
== END 2020-05-06 11:55 | disposition home or self-care (01) ==
LOC: COL.CAR 08:20
PROVIDERS: Internal Medicine Cardiovascular Disease
DX: I25.10 Atherosclerotic heart disease of native coronary artery without angina pectoris (principal); I48.0 Paroxysmal atrial fibrillation; I48.19 Other persistent atrial fibrillation; I11.0 Hypertensive heart disease with heart failure; I50.20 Unspecified systolic (congestive) heart failure; I25.2 Old myocardial infarction; E78.2 Mixed hyperlipidemia; Z79.51 Long term (current) use of inhaled steroids; Z79.01 Long term (current) use of anticoagulants; Z79.02 Long term (current) use of antithrombotics/antiplatelets; Z87.891 Personal history of nicotine dependence; Z11.59 Encounter for screening for other viral diseases; Z95.5 Presence of coronary angioplasty implant and graft
CPT/HCPCS: J2704; J7030

== ENCOUNTER 2020-06-07 13:05 | Inpatient (IN) | payer MEDICARE, OTHER ==
[~2020-06-07] VITALS: Ht 188 cm; Wt 63.8 kg
[2020-06-07 13:25] LABS: BASO % 0.1 % (0.0-2.0); EOS % 0.2 % (0-4.0); GRAN # 8.4 (1.4-6.5); GRAN % 80.4 % (42.2-75.2); HEMATOCRIT 37.9 % (42.0-52.0); HEMOGLOBIN 12.7 g/dl (13.5-18.0); LYMPH # 1.2 (1.2-3.4); LYMPH % 11.7 % (20.0-51.0); MEAN CELL VOLUME 86 fl (80.0-100.0); MEAN CORPUSCULAR HEMOGLOBIN 29 pg (27.0-31.0); MEAN CORPUSCULAR HGB CONC 34 g/dl (33.0-37.0); MEAN PLATELET VOLUME 9.5 fl (7.4-10.4); MONO # 0.7 (0.1-0.6); MONO % 6.9 % (1.7-9.3); PLATELET COUNT 199 K/mm3 (130-400); REDCELL DISTRIBUTION WIDTH-CV 14.9 % (11.5-14.5)
[2020-06-07 13:29] LABS: PROTHROMBIN TIME 22.7 SECONDS (9.7-12.8)
[2020-06-07 13:31] LABS: PARTIAL THROMBOPLASTIN TIME 33.1 SECONDS (26.0-37.0)
[2020-06-07 13:38] LABS: ALANINE AMINOTRANSFERASE 248 U/L (4-49); ALBUMIN 3.1 gm/dL (3.5-5.0); ALKALINE PHOSPHATASE 295 U/L (50-136); ANION GAP 6 mmol/L (7-16); AST,SGOT 249 U/L (15-37); BILIRUBIN,TOTAL 1.4 mg/dL (0.0-1.0); BLOOD UREA NITROGEN 39 mg/dL (9-20); CALCIUM 8.1 mg/dL (8.4-10.2); CARBON DIOXIDE 39 mmol/L (22-30); CREATININE, serum 1.43 (0.66-1.25); GLUCOSE 146 mg/dL (74-106); SODIUM 128 mmol/L (137-145); TOTAL PROTEIN 5.6 gm/dL (6.4-8.2)
[2020-06-07 13:44] LABS: CHLORIDE 83 mmol/L (98-107)
[2020-06-07 13:45] LABS: POTASSIUM 2.8 mmol/L (3.4-5.0)
[2020-06-07 13:56] LABS: TROPONIN-I < 0.012 ng/mL (0.000-0.035)
[2020-06-07 14:11] LABS: COLLECTION METHOD CLEAN CATCH
[2020-06-07 14:21] LABS: MUCOUS Present /lpf; PH 6 (5-8); SQUAMOUS EPITHELIAL 0-2 /hpf; URINE APPEARANCE Clear; URINE BACTERIA None Seen /hpf; URINE BILIRUBIN Negative (NEGATIVE); URINE BLOOD Negative (NEGATIVE); URINE COLOR Yellow; URINE GLUCOSE Negative (NEGATIVE); URINE KETONE Negative (NEGATIVE); URINE LEUKOCYTE ESTERASE Negative (NEGATIVE); URINE NITRATE Negative (NEGATIVE); URINE PROTEIN(semi-quant) Negative (NEGATIVE); URINE RBC 0-2 /hpf; URINE UROBILINOGEN Negative (NEGATIVE)
--- NOTE | 2020-06-07 14:33 | NUR ---
SW responded to ED consult. The patient presented to the ED, via EMS, due to weakness and recurrent falls. His RN reports that he is interested in placement. SW then met with the patient. The patient lives in [place] with his , Brenda (ph#[phone]). The patient was hospitalized in February 2020 and went to [facility] afterwards for a skilled stay. He states that he is not sure when you got out, but he returned home with his and home health. He states that he is not receiving any home health now. The patient states that he keeps getting weaker and weaker and is not able to get up. He states that he fell yesterday and landed on his . Him and his were both unable to get up. He states that his daughter, Navya (ph#[phone]), is visiting from [place] and was thankfully able to help them up. He states that Navya will be leaving soon though and that he does not feel safe returning home. SW discussed post-acute rehab and the different options. The patient states that he would be interested in rehab at [facility]. SW informed him of how [facility] is not taking any patient's at this time. The patient verbalized understanding. He states that [facility] and he would be open to SW sending referrals to other facilities. MISAEL collaborated with the patient's RN and updated her on the above information. MISAEL informed the RN that the facilities would require a COVID test. The patient was admitted inpatient to correct his electrolytes and treat his CHF. The patient's DPOA-HC is in EMR. It designates his and the alternate as Navya. MISAEL then contacted and reviewed the above information with the patient's daughter, Navya. Navya confirms that she will be flying back to [place] on Sunday. She agrees that the patient is not safe to return home and supportive of [facility] as the first preference. Navya states that their second preference would be [facility]. They do not want to go out of [place]. MISAEL contacted and faxed a referral to [facility]. SW awaiting their screens.
[2020-06-07] MEDS ORDERED: DEMADEX 20MG20 M1 PO (15:18)
--- NOTE | 2020-06-07 16:06 | NUR ---
Mary, at [facility], reports that they are good to follow his care and will like more updates while he is here.
--- NOTE | 2020-06-07 19:43 | NUR ---
received report from ER nurse. patient was dropped off during report change. gave report to night nurseRay.
--- NOTE | 2020-06-07 20:00 | NUR ---
Pt was sitting on his bedside when this nurse went for a bedside handover. Pt was bleeding on his both upper extrimities. Changed pt dressing on his both upper extrimities, gown and bedsheet. Food and drink provided. Warm blankets provided as per pt request.
[2020-06-07 21:02] VITALS: BP 106/69; PULSE 74; TEMP 97.6
[2020-06-07 23:16] VITALS: BP 107/65; PULSE 61; TEMP 97.5
[2020-06-08] VITALS (118 sets, daily range): BP systolic 109–131; BP diastolic 58–92; PULSE 57–74; TEMP 97.6–97.7; O2SAT 75–97
--- NOTE | 2020-06-08 05:43 | NUR ---
Pt was sitting on his bed when this nurse went for a bedside handover. Changed his gown and bedsheet and wound dressing. Provided food with drink. Helped to settled on comfortable position, warm blankets were provided on pt request.
--- NOTE | 2020-06-08 05:54 | NUR ---
Pt admission procedure completed and charted. Meds provided as per SEP. Pt denies N/V/D, tingling, numbness, SOA, pain at this time. Pt is settled on his bed, call light is on reach. No further needs at this time.
--- NOTE | 2020-06-08 05:56 | NUR ---
Pt had an uneventful night. Slept on and off through out the night. No further needs at this time.
[2020-06-08 06:45] LABS: BASO % 0.1 % (0.0-2.0); EOS % 0.3 % (0-4.0); GRAN # 8.4 (1.4-6.5); GRAN % 81.9 % (42.2-75.2); HEMOGLOBIN 13.8 g/dl (13.5-18.0); LYMPH % 9.9 % (20.0-51.0); MEAN CELL VOLUME 88 fl (80.0-100.0); MEAN CORPUSCULAR HEMOGLOBIN 30 pg (27.0-31.0); MEAN CORPUSCULAR HGB CONC 34 g/dl (33.0-37.0); MEAN PLATELET VOLUME 9.6 fl (7.4-10.4); MONO # 0.7 (0.1-0.6); MONO % 6.6 % (1.7-9.3); PLATELET COUNT 225 K/mm3 (130-400); RED BLOOD COUNT 4.68 M/mm3 (4.20-5.60); REDCELL DISTRIBUTION WIDTH-CV 15.2 % (11.5-14.5)
[2020-06-08 06:59] LABS: ALBUMIN 3.3 gm/dL (3.5-5.0); BILIRUBIN,TOTAL 1.6 mg/dL (0.0-1.0); CALCIUM 8.3 mg/dL (8.4-10.2); CREATININE, serum 1.51 (0.66-1.25); POTASSIUM 3.1 mmol/L (3.4-5.0); TOTAL PROTEIN 6.1 gm/dL (6.4-8.2)
[2020-06-08 07:00] LABS: IRON,SERUM 51 ug/dL (35-150)
[2020-06-08 08:17] LABS: TOTAL IRON BINDING CAPACITY 281 ug/dL (261-462)
--- NOTE | 2020-06-08 09:18 | NUR ---
Initial visit; Patient thanked Mine Car Repairer for offering God's blessings and keeping him in her prayers.
[2020-06-08] MEDS ORDERED: ASPIRIN 81M81 MG/TA2 PO (10:20)
[2020-06-08 11:53] LABS: PARTIAL THROMBOPLASTIN TIME 35.6 SECONDS (26.0-37.0)
--- NOTE | 2020-06-08 14:53 | NUR ---
Patient is alert and oriented. patient have multiple bruises, with active bleeding wound this morning. Gauze wrap was applied on right skin wound with coban wrap for pressure. Bleeding stopped Patient on Lasix 11mL/HR, 2000 Fluid restriction, with strict input and output documentation. Potassium 3.1, replaced per protocol. PTT 35.6, Hepxa before heparin drip was started was 1.51. Patient requested for laxative for chronic constipation. Last Bowel movement on 06/06/20 per patient. Dobutamine Drip will be started in IMCU - for adequate observation. Await call from IMCU nurse at this time.
[2020-06-08 15:05] LABS: CALCIUM 8.4 mg/dL (8.4-10.2); CREATININE, serum 1.52 (0.66-1.25); POTASSIUM 3.6 mmol/L (3.4-5.0)
--- NOTE | 2020-06-08 16:42 | NUR ---
Urban Gardening Specialist faxed clinical updates to [facility].
[2020-06-08 19:25] LABS: INR 1.6 (0.8-3.0); PROTHROMBIN TIME 18.5 SECONDS (9.7-12.8)
[2020-06-08 21:31] LABS: FOLATE (FOLIC ACID) 9.2 ng/mL (7.0-31.4)
--- NOTE | 2020-06-08 23:00 | NUR ---
Attempted twice to place meng unsucessfuly. Small amount of blood noted after second attempt. Will continue with urinal as long as patient tolerates. Will continue to monitor.
[2020-06-09] VITALS (591 sets, daily range): BP systolic 86–125; BP diastolic 64–79; PULSE 68–94; TEMP 96.1–98; O2SAT 65–100
[2020-06-09 00:12] LABS: PARTIAL THROMBOPLASTIN TIME 72.7 SECONDS (26.0-37.0)
--- NOTE | 2020-06-09 00:30 | NUR ---
Assisted patient up to use bedside commode. Patient has been oozing blood from penis since meng attempts. After standing up blood flow increased noticibly and began dripping down onto the floor. Patient had medium formed BM and was assisted back to bed. VS stable. Patient denies any dizziness or other symptoms. Heparin drip has been on hold due to elevated PTT. However, last PTT check showed level within goal and to re-start drip 300 units lower. Hospitalist notified to inquire about what to do with heparin drip. Hospitalist requested to notify [facility]. Dr. Carmona requested to hold heparin drip until morning. Check post-void residual and consult urology. Hospitalist called again to updated on Dr Carmona's orders.
--- NOTE | 2020-06-09 03:46 | NUR ---
Leisa RN assisted patient to use commode to void. While standing up patient began bleeding again from penis. Approximately 200 ml of benita red blood noted in urinal. Post residual void showed greater than 700ml. Ludmila notified; Instructed to notify urology to place meng and stop lasix drip for now. Hospitalist also notified.
--- NOTE | 2020-06-09 04:10 | NUR ---
Urology notifed about consult to place a meng. Reported that patient denies feeling uncomfortable at this time. Urologist believs bladder scan may be innaccurate due to edema from trauma. Does not feel it necessary to come in at this time to insert meng unless patient becomes uncomfortable. Will come in "later" in the morning. Ok to re-start lasix drip.
[2020-06-09 06:55] LABS: INR 1.3 (0.8-3.0); PROTHROMBIN TIME 15.1 SECONDS (9.7-12.8)
[2020-06-09 07:00] LABS: CALCIUM 8.3 mg/dL (8.4-10.2); CREATININE, serum 1.53 (0.66-1.25); POTASSIUM 3.5 mmol/L (3.4-5.0)
--- NOTE | 2020-06-09 07:00 | NUR ---
Assisted up from commode; approximately 150 ml of bright red blood noted. Dr. Guardado at bedside and observed contents of commode. Assisted back to bed and Dr. Guardado will place a 3-say meng at this time.
[2020-06-09 07:56] LABS: BASO % 0.2 % (0.0-2.0); GRAN # 10.3 (1.4-6.5); HEMOGLOBIN 12.2 g/dl (13.5-18.0); LYMPH # 0.8 (1.2-3.4); LYMPH % 6.8 % (20.0-51.0); MEAN CELL VOLUME 86 fl (80.0-100.0); MEAN CORPUSCULAR HEMOGLOBIN 29 pg (27.0-31.0); MEAN CORPUSCULAR HGB CONC 34 g/dl (33.0-37.0); MEAN PLATELET VOLUME 9.3 fl (7.4-10.4); MONO # 0.6 (0.1-0.6); MONO % 5.3 % (1.7-9.3); PLATELET COUNT 185 K/mm3 (130-400); RED BLOOD COUNT 4.17 M/mm3 (4.20-5.60); REDCELL DISTRIBUTION WIDTH-CV 15.1 % (11.5-14.5)
--- NOTE | 2020-06-09 14:04 | NUR ---
I met with Mr Dale at bedside to talk again about his goals of care. He is very much aware at this time that he cannot go home and is again requesting to go to rehab for a period of time to try to regain some of his strength so that he can function at home. He is aware that his heart condition is not good and that several interventions are planned in the next few days to try to improve his situation. He is aware that many people would not choose to be this aggressive but at this point he is still wanting to pursue these treatments. He is wanting to do the treatments to get his heart into a better rhythm, a thoracentesis to remove the fluid around his lung(s) and potential a pacemaker to help his heart function. He reports that the last few months have been challenging for him but he is not yet ready to stop seeking treatment. He has talked this over with his daughter Navya and also with Brenda. Brenda is wanting him to be at home if that is possible after rehab.
--- NOTE | 2020-06-09 15:24 | NUR ---
A palliative care consult was ordered. Palliative Care Nichelle Choe, met with the patient. The patient would like to continue treatment and still pursue SNF. [facility] may have a bed coming available tomorrow. MISAEL contacted Andrea at [facility]. Andrea confirms that a bed will be coming available, but is not sure if it will be a male or female bed yet. He states that he has talked to the patient's daughter, Navya, about the patient. MISAEL then contacted and updated the patient's daughter, Navya. Navya would like a referral sent to [facility]. Navya states that if [facility] does not have a bed come available, that she is still agreeable for the patient to go to 1) [facility] 2) [facility]. Navya states that they will be looking at transitioning the patient into long-term care after his SNF stay. MISAEL notified Andrea at [facility] and faxed him a referral. MISAEL contacted and faxed updates to [facility] and [facility].
[2020-06-09 15:39] LABS: PARTIAL THROMBOPLASTIN TIME 31.4 SECONDS (26.0-37.0)
--- NOTE | 2020-06-09 19:30 | NUR ---
Patient awake and restless in bed. Attempting to get up from bed without assistance. Patient had pulled out both IV's from bilateral forearms. And pulled of some monitoring wires. Explained to patient the importance of the medication he is receiving through these IV's and the need for close monitoring while on the IV drips. Patient stated "ok, I understand". Patient is confused and needs frequent reminders as to why he is in the hospital and the need to call before attempting to get up from bed. Day shift reports he has experiened confusion on and off today. Non-slip socks on and the bed alarm is set. Call light left within reach.
--- NOTE | 2020-06-09 21:30 | NUR ---
Patient restless in bed and attempting to get up multiple times. States that he has to "pee". Nurse reminded patient that he has a meng catheter. Ensured that there were no kinks in tubing and the urine flow was present. No issues with meng noted. Patient is easily re-directed at these times . Call light left within reach.
--- NOTE | 2020-06-09 22:05 | NUR ---
Initiated heparin drip at 1000 U/ hr per per physcian instruction. No overt signs of bleeding noted before starting drip. Urine is peach tinged with occasional clots noted. Will continue to monitor; Call light left within reach.
[2020-06-10] VITALS (615 sets, daily range): BP systolic 102–131; BP diastolic 66–92; PULSE 8–105; TEMP 97.3–98.3; O2SAT 64–100
--- NOTE | 2020-06-10 03:30 | NUR ---
Patient resting in bed with eyes shut; No concerns at this time.
[2020-06-10 04:59] LABS: BASO % 0.1 % (0.0-2.0); EOS % 0.1 % (0-4.0); GRAN # 8.2 (1.4-6.5); GRAN % 81.8 % (42.2-75.2); HEMOGLOBIN 11.1 g/dl (13.5-18.0); LYMPH # 1.1 (1.2-3.4); LYMPH % 10.6 % (20.0-51.0); MEAN CELL VOLUME 84 fl (80.0-100.0); MEAN CORPUSCULAR HEMOGLOBIN 29 pg (27.0-31.0); MEAN CORPUSCULAR HGB CONC 34 g/dl (33.0-37.0); MEAN PLATELET VOLUME 9.4 fl (7.4-10.4); MONO # 0.7 (0.1-0.6); MONO % 6.8 % (1.7-9.3); PLATELET COUNT 185 K/mm3 (130-400); RED BLOOD COUNT 3.87 M/mm3 (4.20-5.60); REDCELL DISTRIBUTION WIDTH-CV 15.2 % (11.5-14.5)
[2020-06-10 05:03] LABS: HEMATOCRIT 32.4 % (42.0-52.0)
[2020-06-10 05:12] LABS: ALBUMIN 2.9 gm/dL (3.5-5.0); BILIRUBIN,TOTAL 1.9 mg/dL (0.0-1.0); CALCIUM 8.3 mg/dL (8.4-10.2); CREATININE, serum 1.62 (0.66-1.25); POTASSIUM 3.6 mmol/L (3.4-5.0); TOTAL PROTEIN 5.4 gm/dL (6.4-8.2)
--- NOTE | 2020-06-10 08:45 | NUR ---
0840 TIME OUT FOR CARDIOVERSION WITH DR. BELLAMY AND SHEY MONTERROSO CRNA AT BEDSIDE. 0841 SEDATION ADMINSITERED BY SHEY MONTERROSO CRNA 0843 200 JOULE SYNCED DIRECT CARDIOVERSION ADMINISTERED. PATIENT CONVERTS TO SINUS RHYTHM. 0845 ORDERS RECEIVED TO DECREASE DOBUTAMINE TO 2.5 MCG/KG/MIN PER DR. BELLAMY.
--- NOTE | 2020-06-10 12:00 | NUR ---
PATIENT HAS BEEN VERY SLEEPY SINCE CARDIOVERSION EARLIER THIS MORNING. HE REMAINS ON 2L O2 VIA NASAL CANNULA. HE WAKES TO STIMULATION AND RESPONDS APPROPRIATELY. VS REMAIN WNL. HE ALSO REMAINS IN SINUS RHYTHM. WILL CONTINUE TO MONITOR.
--- NOTE | 2020-06-10 14:20 | NUR ---
MISAEL contacted and faxed updates to [facility], [facility], and [facility]. Andrea, at [facility], reports that he does not see why they would not be able to accept the patient, but will not be able to give SW an answer until the patient is transfered up to the medical/surgical floor. SW to continue to follow.
--- NOTE | 2020-06-10 15:00 | NUR ---
Patient more awake now and is pleasant. VS WNL and no complaints.
--- NOTE | 2020-06-10 18:30 | NUR ---
Patient's peripheral iv on right AC infiltrates and is discontinued. Hematoma noted at this time. It is soft in nature. Will continue to monitor.
--- NOTE | 2020-06-10 19:00 | NUR ---
Elder from pharmacy called to discuss IV compatability. He states that according to his information the three ordered medications can be y-sited together (dobutamine, heparin, and lasix). Will try to get 2nd peripheral IV placed so that dobutamine can run by itself, but for now will y-site all iv gtts.
--- NOTE | 2020-06-10 20:00 | NUR ---
PATIENT PEASENT TONIGHT ON TASK, ALERT, CAN REMEMBER STAFF FROM LAST EVENING. PATIENT DESCRIBES ALL STAFF HE MET WAS LIKE A DREAM. PATIENT IS RELAXED REMAINS IN BED AND WANTS RAILS UP.
--- NOTE | 2020-06-10 20:00 | NUR ---
report given to RAYMOND Spencer
[2020-06-11] VITALS (731 sets, daily range): BP systolic 95–128; BP diastolic 65–78; PULSE 75–85; TEMP 96.7–98.2; O2SAT 61–100
[2020-06-11 07:20] LABS: ALBUMIN 2.9 gm/dL (3.5-5.0); BILIRUBIN,TOTAL 1.9 mg/dL (0.0-1.0); CALCIUM 8.3 mg/dL (8.4-10.2); CREATININE, serum 1.61 (0.66-1.25); POTASSIUM 3.6 mmol/L (3.4-5.0); TOTAL PROTEIN 5.5 gm/dL (6.4-8.2)
--- NOTE | 2020-06-11 10:35 | NUR ---
DR GILLIS AT BEDSIDE FOR ASSESSMENT AND DISCUSSING POC WITH PT. PT VERBALIZED UNDERSTANDING. NEW ORDERS RECEIVED.
--- NOTE | 2020-06-11 10:45 | NUR ---
DR HERMAN AT BEDSIDE FOR ASSESSMENT, NEW ORDERS RECEIVED.
--- NOTE | 2020-06-11 12:06 | NUR ---
I met with Mr Dale today after he had talked with Dr Adams. He reports that he has lost a couple of days as he thought today was Sunday not Sunday. he reports that he has been more confused yesterday and today and this troubles him. He remembered that we had visited earlier and he reported to me that Dr Adams had asked him the same questions that we had talked about. he told me tearfully that he still wants to keep going with his treatments and procedures. He feels he still wants to try to get better but then adds "I will tell you when I don't want to do anymore." I told him that is all we asked of him and that we will still support his decision to continue as long as there are things that can be done. He is hopeful to move to a room upstairs later today.
--- NOTE | 2020-06-11 14:54 | NUR ---
The patient remains in the ICU. SW contacted and faxed updates to [facility], [facility], and [facility].
--- NOTE | 2020-06-11 16:45 | NUR ---
DR MICHAUD NOTIFIED BECAUSE OF UO IS BECOMING MORE BLOODY LOOKING, NO MAJOR CLOTS NOTED THOUGH. PHYSICIAN STATES TO CONTACT UROLOGY AND MAKE SURE THEY ARE OKAY WITH STARTING BACK ON CBI. DR HARPER NOTIFIED AND STATES TO IRRIGATE FIRST TO CLEAR OUT CLOTS THEN START BACK ON CBI. UPON ENTERING ROOM WITH SALES ENABLEMENT SPECIALIST TO SET UP AND IRRIGATE, NOTED IN GARIBAY TUBING LIKE PINK TINGED URINE WITH NO CLOTS STILL. WILL PASS ONTO NEXT SHIFT THAT IF URINE BECOMES BLOOD TINGED SEVERELY AGAIN THEN TO RESTART CBI AFTER BLADDER IRRIGATION PER UROLOGY AND HOSPITALISTS ORDERS.
[2020-06-11 17:50] LABS: HEMOGLOBIN 10.9 g/dl (13.5-18.0)
[2020-06-11 18:00] LABS: HEMATOCRIT 32.3 % (42.0-52.0)
--- NOTE | 2020-06-11 18:15 | NUR ---
PTT 116, CHECKED HEPARIN GTT ORDERS WITH RAYMOND VEGA. NO CHANGE NEEDED TO HEPARIN GTT PER ORDERS.
[2020-06-12] VITALS (11 sets, daily range): BP systolic 95–121; BP diastolic 56–67; PULSE 73–106; TEMP 97–98.4; O2SAT 96–97
--- NOTE | 2020-06-12 00:30 | NUR ---
Pt arrived to room 354 at this time from the ICU. Pt alert and oriented x4. Denies pain. Breath sounds diminished bilaterally. Gauze wrap to BUE due to scattered, opened, abraisions. Scattered bruising to BUE. +2 edema BLE. IV heparin and furosemide infusing per orders to left forearm IV. Varela to dependent drainage with pink urine. Pt denies any other needs at this time. Call light within reach. Bed alarm on. Will continue to monitor.
--- NOTE | 2020-06-12 00:37 | NUR ---
PT TRANSFERRED TO 354, REPORT CALLED TO RAYMOND ALEXIS PRIOR TO TRANSFER. PT ALERT AND ORIENTED X4, VSS. ALL BELONGINGS SENT WITH PT AT TIME OF TRANSFER. CRITICAL PTT OF 102.8 CALLED BY LAB, WNL FOR TITRATION FOR HEPARIN. NO FURTHER NEEDS AT THIS TIME.
--- NOTE | 2020-06-12 05:23 | NUR ---
Pt had uneventful night. Currently resting in bed. No reports of pain. Heparin and furosemide infusing per orders. Varela to dependent drainage with pink tinged urine. Bed alarm on. Call light within reach
[2020-06-12 08:31] LABS: BASO % 0.1 % (0.0-2.0); EOS % 0.3 % (0-4.0); GRAN # 7.9 (1.4-6.5); GRAN % 81.8 % (42.2-75.2); HEMOGLOBIN 10.8 g/dl (13.5-18.0); LYMPH # 1.1 (1.2-3.4); LYMPH % 10.9 % (20.0-51.0); MEAN CELL VOLUME 87 fl (80.0-100.0); MEAN CORPUSCULAR HEMOGLOBIN 29 pg (27.0-31.0); MEAN CORPUSCULAR HGB CONC 34 g/dl (33.0-37.0); MEAN PLATELET VOLUME 9.6 fl (7.4-10.4); MONO # 0.6 (0.1-0.6); MONO % 5.7 % (1.7-9.3); PLATELET COUNT 184 K/mm3 (130-400); RED BLOOD COUNT 3.71 M/mm3 (4.20-5.60); REDCELL DISTRIBUTION WIDTH-CV 15.5 % (11.5-14.5)
[2020-06-12 08:42] LABS: HEMATOCRIT 32.1 % (42.0-52.0)
--- NOTE | 2020-06-12 09:49 | NUR ---
Assessment complete. Patient sitting up in bed, alert at this time. No complaints of pain or discomfort other than IV site in his hand. Both IVs are patent but do have bleeding at the site. Heparin dripp continues to infuse as PTT was in goal range, I was told physicians are aware that the patient is having bleeding and that we are to continue the drip until his pacer placement sunday. IV lasix drip completed but I did not start the next bag as patient had 2 consecutive BPs with systolics in the 90s. IV sites were wrapped lightly with gauze to manage bleeding. Will continue to monitor. Call light is in reach. Fall precautions are in place.
[2020-06-12 09:54] LABS: ALBUMIN 2.9 gm/dL (3.5-5.0); BILIRUBIN,TOTAL 1.6 mg/dL (0.0-1.0); CALCIUM 8.4 mg/dL (8.4-10.2); CREATININE, serum 1.54 (0.66-1.25); POTASSIUM 3.6 mmol/L (3.4-5.0); TOTAL PROTEIN 5.3 gm/dL (6.4-8.2)
--- NOTE | 2020-06-12 17:19 | NUR ---
Patient has had a good shift. Bleeding continues from old IV site and craks in lips but it is not actively oozing. Patient understandas why he is still on the heparin drip. minimal complaints through the day. He did oral care independently. Bed change, gown change, and partial bed bath was provided. No complaints through out the day. Left wrist IV was removed as it was oozing and bleeding and was painful for the patient. PTT was in goal range this morning meaning it will be rechecked in the morning. Will continue to monitor. Fall precautions are in place. Call light is in reach.
--- NOTE | 2020-06-12 21:00 | NUR ---
Pt assessment completed and documented. Pt alert and oriented x4. Pt currently resting in bed at this time watching TV. Denies pain. Dressings intact to BUE. No active bleeding seen at this time. Heparin gtt infusing per orders to left forearm IV. Varela to dependent drainage with goff red urine. Pt denies any other needs at this time. Call light within reach. Bed alarm on.
[2020-06-13] VITALS (7 sets, daily range): BP systolic 92–112; BP diastolic 57–76; PULSE 65–94; TEMP 97.8–98.3
[2020-06-13 06:50] LABS: BASO % 0.1 % (0.0-2.0); EOS % 0.5 % (0-4.0); GRAN # 6.9 (1.4-6.5); GRAN % 79.1 % (42.2-75.2); HEMOGLOBIN 10.3 g/dl (13.5-18.0); LYMPH # 1.1 (1.2-3.4); LYMPH % 12.1 % (20.0-51.0); MEAN CELL VOLUME 85 fl (80.0-100.0); MEAN CORPUSCULAR HEMOGLOBIN 29 pg (27.0-31.0); MEAN CORPUSCULAR HGB CONC 33 g/dl (33.0-37.0); MEAN PLATELET VOLUME 9.2 fl (7.4-10.4); MONO # 0.6 (0.1-0.6); MONO % 7.1 % (1.7-9.3); PLATELET COUNT 182 K/mm3 (130-400); RED BLOOD COUNT 3.62 M/mm3 (4.20-5.60); REDCELL DISTRIBUTION WIDTH-CV 15.7 % (11.5-14.5)
--- NOTE | 2020-06-13 06:50 | NUR ---
Pt had uneventful night. Currently resting in bed. States he was able to get some good sleep overnight. No complaints of pain. Heparin gtt infusing per orders. No active bleeding seen at this time. Pt placed on 2L O2 via nasal cannula earlier this morning for 87% O2 sat on RA. Currently on 1L O2 sating in the 90s. Varela to dependent drainage with light pink urine. Pt denies any needs/concerns. Call light within reach. Bed alarm on. Report given to RAYMOND Negron.
[2020-06-13 06:55] LABS: HEMATOCRIT 30.9 % (42.0-52.0)
[2020-06-13 07:11] LABS: ALBUMIN 2.8 gm/dL (3.5-5.0); BILIRUBIN,TOTAL 1.5 mg/dL (0.0-1.0); CALCIUM 8.2 mg/dL (8.4-10.2); CREATININE, serum 1.67 (0.66-1.25); POTASSIUM 3.7 mmol/L (3.4-5.0); TOTAL PROTEIN 5.3 gm/dL (6.4-8.2)
--- NOTE | 2020-06-13 09:11 | NUR ---
Assessment complete. Patient sitting up in bed eating breakfast at this time. He is awake and alert and seems to be in good spirits this morning. Arms are wrapped bilaterally with gauze and coban due to bleeding. IV site is patent, minimally soiled with blood due to blood leakage but continue to flush and infuse fine. Lasix was help due to SBP in 90s. Heparin contniues to infuse, monitoring by PTT, level this AM was within goal, will recheck in the morning. Patient is aware of his POC at this time. No complaints of pain or discomfort were expressed. Call light is in reach. Fall precautions are in place.
--- NOTE | 2020-06-13 11:23 | NUR ---
[facility] aware of patient placement. SW will continue to send updates.
--- NOTE | 2020-06-13 18:16 | NUR ---
Patient has had an uneventful shift. Bleeding has improved a little, heparin drip continues to infuse. no complaints of pain or discomfort through the day were reported. IV site remains intact. Patient seems to be in better spritis today. Continuing to monitor. Call light is in reach.
--- NOTE | 2020-06-13 20:00 | NUR ---
PATIENT IN CONTACT ISOLATION. HEP GTT IN PLACE. PATIENT WITH NO C/O, OBSERVED SOME DARK RED DRAINAGE TO BUE DRESSINGS FROM MULTIPLE VENIPUNCTURE/LAB STICKS. DENIES CHEST PAIN/SHORTNESS OF BREATH, DENIES NUMBNESS/TINGLING TO EXTREMITIES. DENIES ANY NEEDS OR CONCERNS.
[2020-06-14] VITALS (11 sets, daily range): BP systolic 83–107; BP diastolic 50–70; PULSE 72–100; TEMP 97–98
[2020-06-14 06:50] LABS: BASO % 0.1 % (0.0-2.0); EOS # 0.1 (0.0-0.7); EOS % 0.8 % (0-4.0); GRAN # 7.5 (1.4-6.5); GRAN % 78.6 % (42.2-75.2); HEMOGLOBIN 10.4 g/dl (13.5-18.0); LYMPH # 1.1 (1.2-3.4); LYMPH % 11.3 % (20.0-51.0); MEAN CELL VOLUME 86 fl (80.0-100.0); MEAN CORPUSCULAR HEMOGLOBIN 29 pg (27.0-31.0); MEAN CORPUSCULAR HGB CONC 33 g/dl (33.0-37.0); MEAN PLATELET VOLUME 9.5 fl (7.4-10.4); MONO # 0.8 (0.1-0.6); PLATELET COUNT 194 K/mm3 (130-400); RED BLOOD COUNT 3.65 M/mm3 (4.20-5.60); REDCELL DISTRIBUTION WIDTH-CV 15.9 % (11.5-14.5)
--- NOTE | 2020-06-14 06:50 | NUR ---
STOPPED IV HEPARIN DRIP RECOMMENDED PREOP. CHANGE OF SHIFT REPORT GIVEN TO DAY SHIFT NURSEHELIO. PATIENT RESTING IN BED DURING REPORT WITH GARIBAY CATH IN PLACE.
[2020-06-14 07:01] LABS: HEMATOCRIT 31.2 % (42.0-52.0)
[2020-06-14 07:05] LABS: ALBUMIN 2.9 gm/dL (3.5-5.0); BILIRUBIN,TOTAL 1.5 mg/dL (0.0-1.0); CALCIUM 8.3 mg/dL (8.4-10.2); CREATININE, serum 1.52 (0.66-1.25); POTASSIUM 3.9 mmol/L (3.4-5.0); TOTAL PROTEIN 5.4 gm/dL (6.4-8.2)
[2020-06-14 07:21] LABS: INR 1.1 (0.8-3.0); PROTHROMBIN TIME 12.4 SECONDS (9.7-12.8)
--- NOTE | 2020-06-14 12:56 | NUR ---
PARTIAL MORNING MEDS GIVEN. PT NPO FOR ICD PLACEMENT LATER TODAY. NO TIME YET. REPORTED MILD PAIN TO JAMILAH SHOULDERS RELIEVED BY WARM BLANKET. AOX4. LCTA DIMINISHED. MULTIPLE BLEEDING SITES TO JAMILAH FOREARMS. RT FOREAM COBAND/GAUZE C/D/I. LEFT FOREARM DRESSING CHANGED TO TEGADERM AND SLEEVE. OTHER SITE TO LT HAND ALSO TEGADERM. NO ACTIVE BLEEDING. IV DRESSING ALSO CHANGED. DRESSING PRESEN TO COCCYX AND C/D/I, NOT REMOVED FOR ASSESSMENT. NO DRAINAGE NOTED THROUGH IT. PT HAD A BM TODAY AND STRAINED A BIT TO THE POOINT OF FEELING DIZZY BUT RECOVERED QUICKLY. HAS HAD 2 LOOSE BM'S THIS SHIFT. 2 PERSON ASSIST TO COMMODE. GARIBAY INTACT AND DRAINING TEA COLORED URINE. PT WOULD LIKE TO KEEP GARIBAY IN FOR CONVENIENCE BUT EDUCATED ON RISK. WILL REMOVE GARIBAY AFTER ICD PLCMNT DIRECTED BY PA. PT HESITANT DUE TO WEAKNESS AND 2 PERS ASSIST. VERY FEARFUL OF INABILITY TO TRANSFER SELF. WORKING WITH THERAPY. HAS REMAINED NPO SINCE MIDNIGHT BUT BP MEDS GIVEN WITH SMALL SIP OF WATER.
--- NOTE | 2020-06-14 13:27 | NUR ---
PT LEFT FOR ICD PLACEMENT @ 0505
--- NOTE | 2020-06-14 14:16 | NUR ---
Frame Cleaner attended clinical rounds with the team. Per RIVERA Ames patient either wants to go to [facility] or [facility]. EVON Baird Director is screening referral. MISAEL faxed clinical updates to [facility], [facility], and [facility]. Andrea at [facility] advised they are able to accept upon discharge. MISAEL was also contacted by Mary at [facility] who advised they can accept. Per Hui, patient will likely discharge tomorrow. MISAEL contacted patient's daughter, Navya to provide update. Navya advised that at this point, she thinks patient is going to need penitentiary care after rehab. MISAEL updated both EVON Baird Director and Andrea at [facility] of this. Andrea advised they do have a LTC bed available once patient is done with skilled. Brie advised that if LTC is the overall goal, it may be better for patient to discharge to SNF. MISAEL will continue to follow.
--- NOTE | 2020-06-14 16:22 | NUR ---
PT RETURNED TO ROOM @ 1609 VIA BED. SLEEPY. PLACED ON 2L NC DUE TO DESAT WITH SLEEP. PARTIALLY ORIENTED, REDIRECTIBLE. VS CHARTED. CHINO AND TAPE DRESSING NOTED TO LEFT UPPER CHEST/ SHOULDER AREA. NO ACTIVE BLEEDING NOTED. POST-OP VITALS ONGOING
--- NOTE | 2020-06-14 19:55 | NUR ---
NO CONCERNS TO LT SHOULDER ICD INSERTION SITE. DRESSING C/D/I. PT WAS AOX4 FOR DINNER AND ATE AT LEAST 50% WITH ENCOURAGEMENT DESPITE POOR APPETITE. HE STATES HE IS AFRAID TO EAT IT WILL INDUCE NAUSEA BUT DENIED BEING NAUSEOUS. REQUESTED TO KEEP GARIBAY IN AT LEAST OVERNIGHT AND WAS VERY ANXIOUS ABOUT ITS REMOVAL. ONCOMING NURSE MADE AWARE. GARIBAY NOW DRAINING CLOUDY YELLOW URINE. PT DID RECEIVE 700MLS IN COMMERCIAL LOAN OFFICER PER REPORT THUS ONE TIME DOSE IV LASIX. BP REMAIN SOFT BUT STABLE. PT ASSYMPTOMATIC OF LOW BP. UNCHANGED WEAKNESS. REMAINS ON 2L NC FOR COMFORT. PT REPORTS FEELING "BETTER" SINCE HEART CATH. CARE PASSED ONTO ONCOMING NURSE
--- NOTE | 2020-06-14 20:00 | NUR ---
PATIENT RESTING IN BED POST POCEDURE, DENIES ANY DISCOMFORT/CHEST PAIN/SHORTNESS OF BREATH/NUMBNESS OR TINGLING TO EXTREMITIES. REPORTS HE THINKS THE SWELLING TO HIS LEGS IS IMPROVING. GARIBAY IN PLACE, DRAINING CLEAR YELLOW URINE. TELE IN PLACE. OXYGEN ON PER NC AT THIS TIME. SLING IN PLACE TO LUE POST PACER PLACEMENT.
[2020-06-15 00:36] VITALS: BP 112/77; PULSE 81; TEMP 97.5
[2020-06-15 04:25] VITALS: BP 104/60; PULSE 76; TEMP 97.8
[2020-06-15 07:03] LABS: BASO % 0.1 % (0.0-2.0); EOS % 0.4 % (0-4.0); GRAN # 8.8 (1.4-6.5); GRAN % 82.5 % (42.2-75.2); HEMATOCRIT 30.4 % (42.0-52.0); LYMPH # 0.8 (1.2-3.4); LYMPH % 7.9 % (20.0-51.0); MEAN CELL VOLUME 88 fl (80.0-100.0); MEAN CORPUSCULAR HEMOGLOBIN 29 pg (27.0-31.0); MEAN CORPUSCULAR HGB CONC 33 g/dl (33.0-37.0); MEAN PLATELET VOLUME 9.8 fl (7.4-10.4); MONO # 0.8 (0.1-0.6); MONO % 7.8 % (1.7-9.3); PLATELET COUNT 176 K/mm3 (130-400); RED BLOOD COUNT 3.47 M/mm3 (4.20-5.60); REDCELL DISTRIBUTION WIDTH-CV 16.1 % (11.5-14.5)
[2020-06-15 07:19] LABS: ALBUMIN 2.8 gm/dL (3.5-5.0); BILIRUBIN,TOTAL 1.3 mg/dL (0.0-1.0); CALCIUM 8.2 mg/dL (8.4-10.2); CREATININE, serum 1.55 (0.66-1.25); TOTAL PROTEIN 5.1 gm/dL (6.4-8.2)
[2020-06-15 07:40] VITALS: BP 98/64; PULSE 72; TEMP 97.5
--- NOTE | 2020-06-15 08:03 | NUR ---
CHANGE OF SHIFT REPORT GIVEN TO DAY SHIFT NURSEMARYANNE.
--- NOTE | 2020-06-15 09:29 | NUR ---
PT IS AN ALERT & ORIENTED PT WHO IS HAVING SOME WEAKNESS, AND HAD A PACER PLACED. PT IS WORKING WITH THIS PATIENT TO DEVELOP STRENGTH. THE PATIENT HAS BEEN SWABBED FOR COVID, AND THAT RESULT IS PENDING. THE PATIENT SHOULD BE GOING TO A REHAB FACILITY SOON HIS COVID RESULTS RETURN. ASSISTED PT WITH EATING THIS MORNING THE PATIENT HAS AN ESSENTIAL TREMOR THAT WAS CAUSING DIFFICULTY GETTING FOOD TO HIS MOUTH. PT TOOK MEDICATIONS ONE AT A TIME, AND HAD NO DIFFICULTY SWALLOWING. VSS AND THIS PATIENT DENIES ANY PAIN OR DISCOMFORT. NO FURTHER CONCERNS AT THIS TIME.
--- NOTE | 2020-06-15 10:50 | NUR ---
Treasury Manager was able to pray for patient outside of door.
[2020-06-15 11:49] VITALS: BP 98/61; PULSE 62; TEMP 98
--- NOTE | 2020-06-15 12:02 | NUR ---
PT AT BEDSIDE. DOCTOR WOULD LIKE TO KEEP THE PATIENT ONE MORE DAY, AND THEN PENDING COVID RESULTS DISCHARGE TO [facility]. PT HAS HAD NO COMPLAINTS, AND THERE ARE NO OTHER CONCERNS AT THIS TIME.
--- NOTE | 2020-06-15 13:57 | NUR ---
I met with patient today at bedside. He reports feeling a little bit better today and plans on going to [facility] tomorrow for rehab. His was here earlier today and he reports that this visit went well. Pt is still focused on getting stronger and working to improve his health. he states, "I have got to do some of these things for myself--like eating and working with therapy". Support provided. he seems very pleased with his goal at this point.
--- NOTE | 2020-06-15 14:08 | NUR ---
Manager Of Training attended clinical rounds with the team and patient's , Brenda is at bedside. Plan is for [facility] tomorrow. SW contacted [facility] and faxed clinical updates. Patient's COVID test is still pending.
[2020-06-15 15:39] VITALS: BP 93/62; PULSE 78; TEMP 98
--- NOTE | 2020-06-15 19:09 | NUR ---
Report given to RAYMOND Santo
[2020-06-15 20:36] VITALS: BP 97/67; PULSE 82; TEMP 97.9
--- NOTE | 2020-06-15 21:30 | NUR ---
Pt assessment complete. Pt is sitting up in bed upon entry he is A/O x4. His breathing is even and unlabored on 2L O2 via NC. Pt does have kleenex in R nare for a bloody nose, [place] spray provided per SEP and humidification added to oxygen. Pt denies any pain. Worried about urinating since the catheter was removed. Refused dinner due to lack of appetite. Fall precautions in place. No needs at this time. Call light within reach.
[2020-06-16 00:02] VITALS: BP 95/58; PULSE 77; TEMP 98.2
[2020-06-16 04:45] VITALS: BP 93/62; PULSE 76; TEMP 97.7
--- NOTE | 2020-06-16 06:19 | NUR ---
Pt had uneventful night. Did sleep well. Denied pain or issues. Was able to ambulate to the restroom with 2A, pt became very dyspneic on exertion. Urinated okay after meng removal. Pt repositioned for sore on bottom. Has no needs at this time. Fall precautions in place.
[2020-06-16 07:27] LABS: CALCIUM 8.1 mg/dL (8.4-10.2); CREATININE, serum 1.53 (0.66-1.25); POTASSIUM 3.7 mmol/L (3.4-5.0)
[2020-06-16 08:38] VITALS: BP 88/63; PULSE 82; TEMP 97.2
[2020-06-16] MEDS ORDERED: CEPHALEXIN500 M1 PO (08:55)
[2020-06-16] MEDS ORDERED: ELIQUIS 2.5 PO (08:56)
[2020-06-16] MEDS ORDERED: MELATIN 3 MG-11 TAB PO (08:57)
[2020-06-16] MEDS ORDERED: TYLENOL 325MG325 MG PO (08:57)
--- NOTE | 2020-06-16 09:30 | NUR ---
Assessment complete. Pt sitting up in bed to finish breakfast and to take medications, A&O x 3. Pt denies pain at this time. Dressing over right forearm CDI. Dressing to coccyx CDI. Saline lock IV to left AC without s/s of complications. No further needs reported. Call light in reach.
[2020-06-16 11:50] VITALS: BP 105/69; PULSE 65
--- NOTE | 2020-06-16 12:35 | NUR ---
Report called to nurse at [facility]. Pt discharged to [facility] via [facility].
--- NOTE | 2020-06-16 13:47 | NUR ---
Nursery Technician attended clinical rounds with the team and patient to discharge to [facility] today. MISAEL contacted Godfrey at [facility] and set transport time for 1215. MISAEL provided transport time to RN, Cony. MISAEL contacted patient's , Brenda and patient's daughter, Navya to provide discharge time. Navya again expressed that patient will likely need LTC after skilled. Navya requested a call from [facility] today or tomorrow. MISAEL contacted [facility] and requested this. MISAEL faxed negative COVID results and discharge orders to Godfrey at [facility]. No additional needs at this time.
[2020-06-18] MEDS ORDERED: CEPHALEXIN500 M1 PO (12:12)
[2020-06-18] MEDS ORDERED: NORCO2.5 PO ×2 (15:21)
[2020-06-25] MEDS ORDERED: IPRATROPIUM BROM3 M1 IH (10:02)
[2020-06-25] MEDS ORDERED: ISOPTO ATROPINE15 ML SL (10:03)
[2020-06-25] MEDS ORDERED: ZOFRAN 4MG T4 MG/TAB PO (10:04)
[2020-06-25] MEDS ORDERED: DULCOLAX S10 MG/SUPP RC (10:04)
[2020-06-25] MEDS ORDERED: SYSTANE 0.3-0.1 EACH OP (10:04)
[2020-06-25] MEDS ORDERED: ATIVAN 1MG T1 MG/TAB PO (10:05)
[2020-06-25] MEDS ORDERED: ROXANOL 20MG20 MG/ML SL (10:05)
== END 2020-06-16 12:38 | disposition home or self-care (01) | DRG 226 ==
LOC: COL.ER 13:05 → SDCO 14:40 → COL.ER 14:40 → MEDICAL 14:40 → COL.ER 14:40 → MEDICAL 23:00 → ICU 06-08 17:18 → MEDICAL 06-08 17:18 → ICU 06-12 01:10 → MEDICAL 06-12 01:10 → SDCO 06-16 12:38 → MEDICAL 06-16 12:38
PROVIDERS: Emergency Medicine; Hospitalist; Internal Medicine Adult Congenital Heart Disease; Internal Medicine Cardiovascular Disease; Physician Assistant; ADMIT Student in an Organized Health Care Education/Training Program
PROC: 0JH609Z Insertion of Cardiac Resynchronization Defibrillator Pulse Generator into Chest Subcutaneous Tissue and Fascia, Open Approach (ICD-10-PCS; principal; 2020-06-07)
PROC: 02HK3KZ Insertion of Defibrillator Lead into Right Ventricle, Percutaneous Approach (ICD-10-PCS; 2020-06-07)
PROC: 02HL3KZ Insertion of Defibrillator Lead into Left Ventricle, Percutaneous Approach (ICD-10-PCS; 2020-06-07)
DX: I50.21 Acute systolic (congestive) heart failure (principal); J96.01 Acute respiratory failure with hypoxia; E43 Unspecified severe protein-calorie malnutrition; E87.3 Alkalosis; N17.9 Acute kidney failure, unspecified; I42.9 Cardiomyopathy, unspecified; E87.1 Hypo-osmolality and hyponatremia; I27.20 Pulmonary hypertension, unspecified; I95.9 Hypotension, unspecified; E87.6 Hypokalemia; I48.91 Unspecified atrial fibrillation; I25.10 Atherosclerotic heart disease of native coronary artery without angina pectoris; Z20.828 Contact with and (suspected) exposure to other viral communicable diseases; D64.9 Anemia, unspecified; R04.0 Epistaxis; N40.1 Benign prostatic hyperplasia with lower urinary tract symptoms; I08.3 Combined rheumatic disorders of mitral, aortic and tricuspid valves; R33.8 Other retention of urine; R31.0 Gross hematuria; K59.00 Constipation, unspecified; Z91.81 History of falling; R94.31 Abnormal electrocardiogram [ECG] [EKG]; Z79.899 Other long term (current) drug therapy; Z95.9 Presence of cardiac and vascular implant and graft, unspecified; Z87.891 Personal history of nicotine dependence; Z79.52 Long term (current) use of systemic steroids; Z79.82 Long term (current) use of aspirin; Z79.01 Long term (current) use of anticoagulants
CPT/HCPCS: 99223-AI; 99231-AI; 99232-AI; 99233-AI; 99239; A4314; C1769; C1777; C1882; C1894; C1898; C1900; J0330; J0690; J1250; J1644; J1940; J2250; J2370; J2704; J3010; J3480; J7030; Q9967